=== PATIENT | male | born 1975 | race Caucasian/White ===

== ENCOUNTER → 2020-05-05 15:43 | Outpatient (BNVA) | payer MEDICARE, MEDICAID, SELFPAY | PROVIDERS: PCP Internal Medicine; Visit Provider Anesthesiology | DX: M47.816 Spondylosis without myelopathy or radiculopathy, lumbar region (principal); E66.01 Morbid (severe) obesity due to excess calories; Z68.42 Body mass index [BMI] 45.0-49.9, adult; Z98.84 Bariatric surgery status; Z79.891 Long term (current) use of opiate analgesic | CPT/HCPCS: 99213 ==

== ENCOUNTER 2020-06-08 14:48 | Outpatient (REF) | payer MEDICARE, MEDICAID, SELFPAY ==
--- NOTE | 2020-06-08 | US_ITS ---
EXAMINATION: US VENOUS ULTRASOUND WITH DOPPLER LOWER EXTREMITY, LEFT CLINICAL INFORMATION: Cellulitis, rule out DVT COMPARISON: None TECHNIQUE: Ultrasound of the deep veins is performed from the hip to the calf with compression sonography and color and pulse Doppler assessment. Spectral analysis with color-flow imaging is performed. FINDINGS: There is normal venous compression and respiratory variation and augmented flow. The visualized common femoral vein, superficial femoral vein, profunda femoral vein, popliteal vein, and the trifurcation region shows no evidence of deep venous thrombosis. There is no significant popliteal fossa cyst. If the patient's symptoms persist, followup ultrasound in 5 days 7 days might be of value to exclude proximal propagation from a non-visualized calf vein. There are thrombosed superficial varicose veins noted in the distal thigh and proximal calf. US/US venous duplex LE LT IMPRESSION: No deep vein thrombosis demonstrated in the left lower extremity. Thrombosed superficial varicose veins are noted in the distal thigh and proximal calf.
== END 2020-06-08 14:49 | disposition home or self-care (01) ==
LOC: HO.US 14:48
PROVIDERS: Visit Provider Internal Medicine
DX: L03.116 Cellulitis of left lower limb (principal); I83.92 Asymptomatic varicose veins of left lower extremity; M47.816 Spondylosis without myelopathy or radiculopathy, lumbar region; E66.01 Morbid (severe) obesity due to excess calories; R63.5 Abnormal weight gain; Z98.84 Bariatric surgery status; Z79.899 Other long term (current) drug therapy
CPT/HCPCS: 93971; 99212

== ENCOUNTER → 2020-07-06 14:44 | Outpatient (BNVA) | payer MEDICARE, MEDICAID, SELFPAY | PROVIDERS: Visit Provider Anesthesiology | DX: M47.816 Spondylosis without myelopathy or radiculopathy, lumbar region (principal); E66.01 Morbid (severe) obesity due to excess calories; R63.5 Abnormal weight gain; Z98.84 Bariatric surgery status | CPT/HCPCS: 99212 ==

== ENCOUNTER → 2020-08-04 08:35 | Outpatient (BNVA) | payer MEDICARE, MEDICAID, SELFPAY | PROVIDERS: Visit Provider Anesthesiology | DX: Z76.89 Persons encountering health services in other specified circumstances (principal) ==